=== PATIENT | male | born 1950 | race Caucasian/White ===

== ENCOUNTER → 2020-10-21 | Outpatient (CLI) | payer MEDICARE, OTHER ==
[~2020-10-21] MED LIST: AMARYL2 MG PO; DURAGESIC1 EAC1 TD; METFORMIN HCL1000 M1 PO; NEURONTIN600 MG PO; PERCOCET 10-321 EACH PO; ROXICODONE15 MG PO; VITAMIN B12-FO1 EACH PO; ZANAFLEX6 MG PO
== END ==
LOC: NM 07:55
DX: C34.32 Malignant neoplasm of lower lobe, left bronchus or lung (principal); C79.51 Secondary malignant neoplasm of bone; C77.1 Secondary and unspecified malignant neoplasm of intrathoracic lymph nodes; Z79.899 Other long term (current) drug therapy
CPT/HCPCS: 78306; A9503

== ENCOUNTER → 2020-11-14 | Outpatient (CLI) | payer MEDICARE, OTHER | LOC: MRI 15:00 | DX: C34.32 Malignant neoplasm of lower lobe, left bronchus or lung (principal); C79.51 Secondary malignant neoplasm of bone; C77.1 Secondary and unspecified malignant neoplasm of intrathoracic lymph nodes; Z79.899 Other long term (current) drug therapy; M50.30 Other cervical disc degeneration, unspecified cervical region | CPT/HCPCS: 72156; 73223; A9577 ==

== ENCOUNTER → 2021-01-11 | Outpatient (CLI) | payer MEDICARE, OTHER | LOC: NM 08:10 | DX: C34.32 Malignant neoplasm of lower lobe, left bronchus or lung (principal); C79.51 Secondary malignant neoplasm of bone; C77.1 Secondary and unspecified malignant neoplasm of intrathoracic lymph nodes; Z79.899 Other long term (current) drug therapy | CPT/HCPCS: 78306; A9503 ==

== ENCOUNTER → 2021-01-16 | Outpatient (CLI) | payer MEDICARE, OTHER | LOC: CT 14:30 | DX: C34.32 Malignant neoplasm of lower lobe, left bronchus or lung (principal); C79.51 Secondary malignant neoplasm of bone; C77.1 Secondary and unspecified malignant neoplasm of intrathoracic lymph nodes; C78.7 Secondary malignant neoplasm of liver and intrahepatic bile duct; Z79.899 Other long term (current) drug therapy | CPT/HCPCS: 36415; 70491; 71260; 82565; Q9967 ==